=== PATIENT | female | born 1985 | race Caucasian/White ===

== ENCOUNTER 2020-02-18 14:57 | Emergency (ER) | payer MEDICARE ==
[~2020-02-18] VITALS: Ht 152.4 cm; Wt 65.9 kg
--- NOTE | 2020-02-18 15:06 | NUR ---
MARCELLA GOODMAN, PT FROM [facility]. PT WITH DELUSIONAL THOUGHTS AND PARANOIA. PT STATES "THE CATHOLICS ARE TRYING TO KILL ME" "MY FAMILY HAS BEEN KIDNAPPED BY PEOPLE WITH COVID" PT A0X4, COOPERATIVE. PT DENIES SI/HI. PT WITH WRISTBAND ON FROM ANOTHER FACILITY, PT STATES SHE WAS AT [facility] FOR SAME. WHEN ASKED WHAT COULD BE DONE TO HELP HER PT STATES SHE NEEDS MEDICINCE FOR HER BACK. PT STATES, "IM TERMINAL" "I NEED PROTIEN" VSS ERPROVIDER IN TO EVAL PT
[2020-02-18 15:28] LABS: MEAN CORPUSCULAR HEMOGLOBIN 32.1 pg (27.0-34.8); MEAN CORPUSCULAR HGB CONC 33.7 g/dL (32.4-35.8); MEAN CORPUSCULAR VOLUME 95.1 fL (80-100); MEAN PLATELET VOLUME 7.5 fL (7.4-10.4); PLATELET COUNT 304 x10^3/uL (130-400); RED BLOOD COUNT 4.43 x10^6/uL (3.82-5.3); RED CELL DISTRIBUTION WIDTH 14.4 % (9.6-15.2)
[2020-02-18 15:38] LABS: ALANINE AMINOTRANSFERASE 22 U/L (12-78); ALBUMIN 3.5 g/dL (3.4-5.0); ANION GAP 10 mmol/L (5-15); CALCIUM 8.6 mg/dL (8.5-10.1); CHLORIDE 106 mmol/L (98-107)
[2020-02-18 15:40] LABS: ALKALINE PHOSPHATASE 69 U/L (45-117); BILIRUBIN,TOTAL 1.1 mg/dL (0.2-1.0); TOTAL PROTEIN 6.8 g/dL (6.4-8.2)
[2020-02-18 16:16] LABS: BASOPHILS # (AUTO) 0.01 x10^3/uL (0-0.1); BASOPHILS % (AUTO) 0 % (0-1); EOSINOPHILS # (AUTO) 0.02 x10^3/uL (0-0.4); EOSINOPHILS % (AUTO) 0 % (1-7); LYMPHOCYTES # (AUTO) 0.81 x10^3/uL (1-3.4); LYMPHOCYTES % (AUTO) 5 % (22-44); MD SCAN; MONOCYTES # (AUTO) 0.38 x10^3/uL (0.2-0.8); MONOCYTES % (AUTO) 2 % (2-9); NEUTROPHILS # (AUTO) 15.37 x10^3/uL (1.8-6.8); NEUTROPHILS % (AUTO) 93 % (42-75)
--- NOTE | 2020-02-18 16:51 | NUR ---
PT BECOMING AGITATED, AMBULATED TO BR WITH STEADY GAIT. PT CALMED ABLE. PT STATES "MY DOCTORS GONNA HAVE YOUR ASS, WE ARE SUPPOSED TO BE AT A BASEBALL GAME, THEY ARE STARVING ME, IM CANT FIND THE GIRL" CONTINUES TO HAVE FLOOD OF IDEAS. PT BACK TO AT THIS TIME. AWAITING PSYCH EVAL.
--- NOTE | 2020-02-18 17:07 | NUR ---
MAILROOM COORDINATOR IN TO NEO PT, PT NOW LH. FROILAN RICHARDS ORDERED FOR PT. PT TO MOVE TO RM 1, REPORT TO CARTER BROUSSARD.
[2020-02-18 17:15] LABS: AMPHETAMINE SCREEN, URINE Negative (Negative); BARBITURATE SCREEN, URINE Negative (Negative); BENZODIAZEPINE SCREEN, URINE Negative (Negative); CANNABINOID SCREEN, URINE Negative (Negative); COCAINE SCREEN, URINE Negative (Negative); METHADONE SCREEN, URINE Negative (Negative); OPIATE SCREEN, URINE Negative (Negative)
[2020-02-18] MEDS ORDERED: LORazepam 2 MG/ML, 1ML IM PRN (17:30)
[2020-02-18] MEDS ORDERED: HALOPERIDOL 5 MG/ML IM PRN (17:30)
[2020-02-18] MEDS ORDERED: DIPHENHYDRAMINE 50 MG/ML, 1ML IM PRN (17:30)
--- NOTE | 2020-02-18 17:31 | NUR ---
REPORT FROM CARTER BROUSSARD.
[2020-02-18] MEDS ORDERED: OLANZAPINE 5 MG TABLET PO ONE (18:00)
[2020-02-18 18:11] VITALS: BP 108/67
--- NOTE | 2020-02-18 18:12 | NUR ---
SITTER IN PLACE. PT CHANGED TO HOSPITAL GOWN, BELONGINGS IN 1 BAG, LABELED. AWAITING FOOD. DENIES SI/HI AT MOMENT, MAKES DELUSIONAL STATEMENTS "THEY'RE AFTER ME". FLIGHT OF IDEAS. COMPLIANT W/ VITALS ASSESSMENT. GIVEN SOCKS/BLANKETS. LIGHTS DIMMED, CALL TOMAS IN REACH. CALM AT THIS TIME.
[2020-02-18] MEDS ORDERED: OLANZAPINE 5 MG TABLET ONE (18:15)
--- NOTE | 2020-02-18 18:20 | NUR ---
THROUGHPUT: FAXED PT INFORMATION TO [facility], [place], [facility], [facility], AND [facility].
[2020-02-18] MEDS ORDERED: IBUPROFEN 600 MG TABLET ONE (18:21)
--- NOTE | 2020-02-18 18:25 | NUR ---
GIVEN ZYPREXA AND MOTRIN FOR BACK PAIN. GIVEN FOOD. CALLED FOR HOSPITAL BED.
[2020-02-18] MEDS ORDERED: IBUPROFEN 600 MG TABLET PO ONE (18:30)
--- NOTE | 2020-02-18 18:45 | NUR ---
THROUGHPUT: LENNOX FROM [facility] DENIED PT AT THIS TIME.
--- NOTE | 2020-02-18 18:46 | NUR ---
THROUGHPUT: SHAYY FROM [facility] CAN ACCEPT PT AND HAS ACCEPTING PHYSICIAN.
--- NOTE | 2020-02-18 18:54 | NUR ---
REPORT TO ORLANDO BROUSSARD.
--- NOTE | 2020-02-18 18:57 | NUR ---
ATTEMPT TO CALL REPORT TO [facility] [phone]. WAS TOLD TO CALL BACK IN 10 MIN.
--- NOTE | 2020-02-18 19:48 | NUR ---
report to rupesh rn at [facility]. pt can go now per [facility]. as
[2020-02-18] MEDS ORDERED: OLANZAPINE 5 MG TABLET PO SCH (21:00)
== END 2020-02-18 20:47 ==
LOC: ED 18:17
DX: F22 Delusional disorders (principal)
CPT/HCPCS: 36415; 80053; 80307; 85025; 99285

== ENCOUNTER 2020-04-08 19:46 | Emergency (ER) | payer MEDICARE ==
[~2020-04-08] VITALS: Ht 154.9 cm; Wt 65.7 kg
[2020-04-08 20:13] VITALS: BP 121/62
[2020-04-08] MEDS ORDERED: ACETAMINOPHEN 325 MG TABLET PO ONE (20:30)
[2020-04-08] MEDS ORDERED: ACETAMINOPHEN 325 MG TABLET ONE (20:36)
--- NOTE | 2020-04-08 20:55 | NUR ---
Pt states she would like to sleep in ED tonight, provided pt with teaching r/t proper use of ED services. This RN also provided pt with information on shelters. Pt declined, [facility] Provided pt with cab voucher to friend's house. Pt refuses all d/c instructions. Refuses d/c VS. No IV in place. Ambulated out of ED independently, slow/steady gait
== END 2020-04-08 20:50 | disposition home or self-care (01) ==
LOC: ED 20:00
DX: J02.8 Acute pharyngitis due to other specified organisms (principal); Z20.828 Contact with and (suspected) exposure to other viral communicable diseases
CPT/HCPCS: 36415; 87635; 99283